=== PATIENT | male | born 1965 | race Caucasian/White ===

== ENCOUNTER → 2019-01-30 | Outpatient (CLI) | payer BC ==
[~2019-01-30] MED LIST: ALBU90I INH; ALBU90OI; ALBU90OI INH; AMIT25; AMOCLA875 PO; ASPI81EC; ATEN25; Aspirin EC81 MG PO; CEPH500 PO; CLOP75; CYCL10 PO; Chantix0.5 MG; ERYT.5TO OS; ERYT.5TO OU; GENT.3OPSA OU; HYDACE10B PO; HYDACE5 PO; IBUP400 PO; IBUP600 PO; IBUP800; LISI10; LISI10 PO; Lipitor20 MG PO; NAPR500 PO; NAPR550 PO; OXYACE5T PO; PENVK500 PO; PROP40; RXCLIN PO; RXOXYACE PO; RXSULTRIDS PO; RXTRAM50 PO; SIMV40; SIMV40 PO; SULTRIDS PO; TRAM50 PO
[2019-01-30 14:44] LABS: BASOPHILS ABSOLUTE AUTO 0.04 K/mm3 (0.00-0.23); BASOPHILS PERCENT AUTO 1 % (0-2); EOSINOPHILS ABSOLUTE AUTO 0.11 K/mm3 (0.00-0.68); EOSINOPHILS PERCENT AUTO 2 % (0-6); Hematocrit 43.4 % (37.0-53.0); Hemoglobin 15.2 g/dL (13.5-17.5); IMMATURE GRAN ABSOLUTE AUTO 0.02 K/mm3 (0.00-0.10); IMMATURE GRAN PERCENT AUTO 0 % (0-1); LYMPHOCYTES ABSOLUTE AUTO 1.57 K/mm3 (0.84-5.20); LYMPHOCYTES PERCENT AUTO 23 % (21-46); MONOCYTES ABSOLUTE AUTO 0.45 K/mm3 (0.16-1.47); MONOCYTES PERCENT AUTO 7 % (4-13); Mean Corpuscular HGB 31.6 pg (26.0-34.0); Mean Corpuscular Volume 90 fL (80-100); Mean Platelet Volume 9.9 fL (9.1-12.4); NEUTROPHILS ABSOLUTE AUTO 4.56 K/mm3 (1.96-9.15); NEUTROPHILS PERCENT AUTO 68 % (41-73); Platelet Count 186 K/mm3 (150-400); RDW Coefficient Variation 11.9 % (11.7-14.2); RDW Standard Deviation 39.2 fL (35.1-46.3); Red Blood Cell Count 4.81 M/mm3 (4.30-5.90); White Blood Cell Count 6.75 K/mm3 (4.00-11.30)
[2019-01-30 15:01] LABS: Alanine Aminotransfer (ALT/SGP 16 U/L (12-78); Albumin, Blood 3.7 g/dL (3.4-5.0); Albumin/Globulin Ratio 0.9 (0.8-1.8); Alk Phos 84 U/L (40-126); Anion Gap 9 mmol/L (6-16); Aspartate Aminotrans (AST/SGOT 16 U/L (12-37); Bilirubin, Total 0.5 mg/dL (0.1-1.0); Blood Urea Nitrogen 11 mg/dL (8-24); Bun/Creatinine Ratio 13.1 (12.0-20.0); CHOL/HDL RATIO 4.1; CO2, Blood 28 mmol/L (21-32); Calcium, Blood 9.2 mg/dL (8.5-10.1); Chloride, Blood 101 mmol/L (98-108); Cholesterol 182 mg/dL (50-200); Creatinine, Blood 0.84 mg/dL (0.60-1.20); Globulin, Blood 3.9 g/dL (2.2-4.0); Glomerular Filtration Rate >60 (60-); Glucose, Blood 80 mg/dL (70-99); HDL Cholesterol 44 mg/dL (>39); LDL/HDL RATIO 2.8; Low Density Lipoprotein Chol 121 mg/dL (<110); Potassium, Blood 4.1 mmol/L (3.5-5.5); Sodium, Blood 138 mmol/L (136-145); Thyroid Stimulating Hormone 1.308 uIU/mL (0.360-4.800); Total Protein, Blood 7.6 g/dL (6.4-8.2); Triglycerides 83 mg/dL (30-160); Very Low Density Lipoprot Chol 16 mg/dL (6-32)
[2019-01-30 16:02] LABS: PSA, Free 0.101 ng/mL
== END | disposition home or self-care (01) ==
LOC: LAB EV 14:38 → LAB SHORT 14:38
PROVIDERS: Physician Assistant
DX: K62.5 Hemorrhage of anus and rectum (principal); I25.10 Atherosclerotic heart disease of native coronary artery without angina pectoris; N40.0 Benign prostatic hyperplasia without lower urinary tract symptoms; R53.83 Other fatigue
CPT/HCPCS: 80053; 80061; 83690; 84153; 84154; 84443; 85025

== ENCOUNTER 2019-02-24 16:31 | Emergency (ER) | payer BC ==
[~2019-02-24] VITALS: Ht 170.2 cm; Wt 68.0 kg
[2019-02-24 17:33] LABS: BASOPHILS ABSOLUTE AUTO 0.05 K/mm3 (0.00-0.23); BASOPHILS PERCENT AUTO 1 % (0-2); EOSINOPHILS ABSOLUTE AUTO 0.07 K/mm3 (0.00-0.68); EOSINOPHILS PERCENT AUTO 1 % (0-6); Hematocrit 41.2 % (37.0-53.0); IMMATURE GRAN ABSOLUTE AUTO 0.03 K/mm3 (0.00-0.10); IMMATURE GRAN PERCENT AUTO 0 % (0-1); LYMPHOCYTES ABSOLUTE AUTO 1.29 K/mm3 (0.84-5.20); LYMPHOCYTES PERCENT AUTO 12 % (21-46); MONOCYTES ABSOLUTE AUTO 0.78 K/mm3 (0.16-1.47); MONOCYTES PERCENT AUTO 7 % (4-13); Mean Corpuscular HGB 31.1 pg (26.0-34.0); Mean Corpuscular Volume 92 fL (80-100); Mean Platelet Volume 9.2 fL (9.1-12.4); NEUTROPHILS ABSOLUTE AUTO 8.66 K/mm3 (1.96-9.15); NEUTROPHILS PERCENT AUTO 80 % (41-73); Platelet Count 205 K/mm3 (150-400); RDW Coefficient Variation 11.9 % (11.7-14.2); RDW Standard Deviation 40.1 fL (35.1-46.3); White Blood Cell Count 10.88 K/mm3 (4.00-11.30)
[2019-02-24 17:52] LABS: Alanine Aminotransfer (ALT/SGP 14 U/L (12-78); Albumin, Blood 3.4 g/dL (3.4-5.0); Alk Phos 73 U/L (50-136); Anion Gap 6 mmol/L (6-16); Aspartate Aminotrans (AST/SGOT 13 U/L (12-37); Bilirubin, Total 0.9 mg/dL (0.1-1.0); Blood Urea Nitrogen 13 mg/dL (8-24); CO2, Blood 28 mmol/L (21-32); Calcium, Blood 8.4 mg/dL (8.5-10.1); Chloride, Blood 103 mmol/L (98-108); Creatinine, Blood 0.87 mg/dL (0.60-1.20); Globulin, Blood 3.3 g/dL (2.2-4.0); Glomerular Filtration Rate >60 (60-); Glucose, Blood 85 mg/dL (70-99); Potassium, Blood 3.9 mmol/L (3.5-5.5); Sodium, Blood 137 mmol/L (136-145); Total Protein, Blood 6.7 g/dL (6.4-8.2)
[2019-02-24] MEDS ORDERED: HYDR1TAB94 PO (19:10)
[2019-02-24] MEDS ORDERED: Augmentin 875-1 EACH PO (19:10)
[2019-02-24] MEDS ORDERED: Zofran8 MG PO (19:10)
[2019-05-15] MEDS ORDERED: CYCL10 PO (15:04)
[2019-05-15] MEDS ORDERED: CLOP75 PO (15:04)
== END 2019-02-24 20:34 | disposition home or self-care (01) ==
LOC: ER 16:31
PROVIDERS: Emergency Medicine
DX: K57.32 Diverticulitis of large intestine without perforation or abscess without bleeding (principal); Z79.82 Long term (current) use of aspirin; Z79.899 Other long term (current) drug therapy; F17.200 Nicotine dependence, unspecified, uncomplicated
CPT/HCPCS: 36415; 74177; 80053; 85025; 93005; 93010; 96365-59; 96375; 99284-25; J0295; J1170; J2405; J2543; J7120; Q9967

== ENCOUNTER 2019-03-22 08:52 | Day surgery (SDC) | payer BC ==
[~2019-03-22] VITALS: Wt 64.8 kg
[~2019-03-22 08:52] MED LIST changes: +Augmentin 875-1 EACH PO; +HYDR1TAB94 PO; +Zofran8 MG PO
--- NOTE | 2019-03-22 09:11 | NUR ---
Ambulatory in Day SurgeryPatient states colon prep results clear. History, Chart, Medications and Allergies reviewed before start of procedure.Lungs INSP WHEEZES RIGHT, CLEARS W/COUGH, Patient confirms NPO status and agrees with scheduled surgery. Pre-Op teaching done. Pt verbalizes understanding.
--- NOTE | 2019-03-22 09:43 | NUR ---
03/22/19 0943 Karan Jameson PATIENT DETERMINED TO BE ASA APPROPRIATE FOR PROPOFOL SEDATION PRIOR TO START OF PROCEDURE BY . 3-LEAD EKG REVIEWED WITH PHYSICIAN PRIOR TO START OF PROCEDURE.PATIENT CONFIRMS NPO STATUS AND AGREES WITH SCHEDULED PROCEDURE.History, Chart, Medications and Allergies reviewed before start of procedure.MONITOR INTACT WITH CONTINUOUS PULSE OXIMETRY AND INTERMITTENT BP.O2 VIA N/C INTACT THROUGHOUT SEDATION/PROCEDURE.
--- NOTE | 2019-03-22 11:05 | NUR ---
Patient up to Ambulate independently. Gait steady. Discharge instructions reviewed with patient. Patient verbalizes understanding. Copy given to patient to take home. Patient States Post-Procedure ride home has been arranged. Discharged via wheelchair to private car for ride home.
[2019-05-15] MEDS ORDERED: CYCL10 PO (15:04)
[2019-05-15] MEDS ORDERED: CLOP75 PO (15:04)
== END 2019-03-22 22:57 | disposition home or self-care (01) ==
LOC: ORSCMMR 08:52 → ORD 09:45 → ORSCMMR 09:45
PROVIDERS: Internal Medicine Gastroenterology
PROC: 0DBM8ZX Excision of Descending Colon, Via Natural or Artificial Opening Endoscopic, Diagnostic (ICD-10-PCS; principal; 2019-03-22 09:45)
PROC: 0DBH8ZX Excision of Cecum, Via Natural or Artificial Opening Endoscopic, Diagnostic (ICD-10-PCS; principal; 2019-03-22 09:45)
PROC: 0DBN8ZX Excision of Sigmoid Colon, Via Natural or Artificial Opening Endoscopic, Diagnostic (ICD-10-PCS; principal; 2019-03-22 09:45)
PROC: 0DBL8ZX Excision of Transverse Colon, Via Natural or Artificial Opening Endoscopic, Diagnostic (ICD-10-PCS; principal; 2019-03-22 09:45)
DX: Z12.11 Encounter for screening for malignant neoplasm of colon (principal); Z86.010 Personal history of colon polyps; D12.3 Benign neoplasm of transverse colon; D12.0 Benign neoplasm of cecum; D12.5 Benign neoplasm of sigmoid colon; K63.5 Polyp of colon; K57.30 Diverticulosis of large intestine without perforation or abscess without bleeding; K64.8 Other hemorrhoids; I25.10 Atherosclerotic heart disease of native coronary artery without angina pectoris; J44.9 Chronic obstructive pulmonary disease, unspecified; I73.9 Peripheral vascular disease, unspecified; F17.210 Nicotine dependence, cigarettes, uncomplicated; Z79.899 Other long term (current) drug therapy; Z79.82 Long term (current) use of aspirin
CPT/HCPCS: 87070; 87081; 88305; J2704; J7120

== ENCOUNTER 2019-04-15 18:19 | Emergency (ER) | payer BC ==
[~2019-04-15] VITALS: Ht 170.2 cm; Wt 68.5 kg
[2019-05-15] MEDS ORDERED: CLOP75 PO (15:04)
[2019-05-15] MEDS ORDERED: CYCL10 PO (15:04)
== END 2019-04-15 21:14 | disposition home or self-care (01) ==
LOC: ER 18:19
DX: I73.9 Peripheral vascular disease, unspecified (principal); Z79.82 Long term (current) use of aspirin; Z79.899 Other long term (current) drug therapy; F17.200 Nicotine dependence, unspecified, uncomplicated
CPT/HCPCS: 93971; 99283-25; A9270

== ENCOUNTER 2019-05-16 07:42 | Day surgery (SDC) | payer BC ==
[~2019-05-16] VITALS: Ht 165.1 cm; Wt 71.0 kg
[~2019-05-16 07:42] MED LIST changes: +CLOP75 PO
--- NOTE | 2019-05-16 14:57 | NUR ---
PT DRESSED, IV DC'D INTACT, PT WALKING AROUND SLOWELY, STATES THIGHS BILAT SORE. R/L GROIN SITES APPEAR STABLE, R DP 1, R PT 1, R GREAT TOE CAP REFILL <3SEC. NO REFILL THIS AM BEFORE PROCEDURE. PT DC'D WITH FAMILY DRIVING PT HOME. PT CHOOSES TO WALK OUT W FAMILY.
== END 2019-05-16 15:00 | disposition home or self-care (01) ==
LOC: MHTC 07:42
DX: I74.5 Embolism and thrombosis of iliac artery (principal); I70.201 Unspecified atherosclerosis of native arteries of extremities, right leg; N52.9 Male erectile dysfunction, unspecified; I25.10 Atherosclerotic heart disease of native coronary artery without angina pectoris; E78.5 Hyperlipidemia, unspecified; Z87.891 Personal history of nicotine dependence; Z79.899 Other long term (current) drug therapy; Z79.82 Long term (current) use of aspirin; Z79.01 Long term (current) use of anticoagulants
CPT/HCPCS: 37220; 37221; 37222; 75625; 75710; 75716; 75774; 76937; 99152; 99153; C1725; C1760; C1769; C1876; C1887; C1894; J1644; J2250; J3010; J7030; Q9967

== ENCOUNTER → 2021-03-30 | Outpatient (CLI) | payer BC ==
[2021-03-30 16:14] LABS: BASOPHILS ABSOLUTE AUTO 0.02 K/mm3 (0.00-0.23); BASOPHILS PERCENT AUTO 0 % (0-2); EOSINOPHILS ABSOLUTE AUTO 0.14 K/mm3 (0.00-0.68); EOSINOPHILS PERCENT AUTO 3 % (0-6); Hematocrit 41.2 % (37.0-53.0); Hemoglobin 14.6 g/dL (13.5-17.5); IMMATURE GRAN ABSOLUTE AUTO 0.01 K/mm3 (0.00-0.10); IMMATURE GRAN PERCENT AUTO 0 % (0-1); LYMPHOCYTES ABSOLUTE AUTO 0.68 K/mm3 (0.84-5.20); LYMPHOCYTES PERCENT AUTO 15 % (21-46); MONOCYTES ABSOLUTE AUTO 0.38 K/mm3 (0.16-1.47); MONOCYTES PERCENT AUTO 8 % (4-13); Mean Corpuscular HGB 31.1 pg (26.0-34.0); Mean Corpuscular HGB Conc 35.4 g/dL (31.5-36.5); Mean Corpuscular Volume 88 fL (80-100); NEUTROPHILS ABSOLUTE AUTO 3.33 K/mm3 (1.96-9.15); NEUTROPHILS PERCENT AUTO 73 % (41-73); Platelet Count 155 K/mm3 (150-400); RDW Coefficient Variation 12.1 % (11.7-14.2); RDW Standard Deviation 38.9 fL (35.1-46.3); Red Blood Cell Count 4.69 M/mm3 (4.30-5.90); White Blood Cell Count 4.56 K/mm3 (4.00-11.30)
[2021-03-30 16:27] LABS: Alanine Aminotransfer (ALT/SGP 28 U/L (12-78); Albumin, Blood 3.3 g/dL (3.4-5.0); Alk Phos 79 U/L (40-126); Anion Gap 8 mmol/L (6-16); Aspartate Aminotrans (AST/SGOT 19 U/L (12-37); Bilirubin, Total 0.3 mg/dL (0.1-1.0); Blood Urea Nitrogen 15 mg/dL (8-24); Bun/Creatinine Ratio 18.1 (12.0-20.0); CO2, Blood 29 mmol/L (21-32); Calcium, Blood 8.6 mg/dL (8.5-10.1); Chloride, Blood 102 mmol/L (98-108); Creatinine, Blood 0.83 mg/dL (0.60-1.20); Globulin, Blood 3.4 g/dL (2.2-4.0); Glomerular Filtration Rate >60 (60-); Glucose, Blood 102 mg/dL (70-99); Potassium, Blood 3.7 mmol/L (3.5-5.5); Sodium, Blood 139 mmol/L (136-145); Total Protein, Blood 6.7 g/dL (6.4-8.2)
== END | disposition home or self-care (01) ==
LOC: LAB SHORT 16:11 → LAB 16:11
PROVIDERS: Physician Assistant Medical
DX: R10.32 Left lower quadrant pain (principal)
CPT/HCPCS: 80053; 85025

== ENCOUNTER 2021-12-08 06:34 | Day surgery (SDC) | payer BC ==
[~2021-12-08] VITALS: Ht 170.2 cm; Wt 68.0 kg
--- NOTE | 2021-12-08 09:38 | NUR ---
PT TO RECOVERY ROOM VIA BED. PT REPORT FROM STORM DE [facility]ZMAN. PT HAS ANGIOSEAL IN PLACE. BLEEDING CONTROLLED. DPs PALPATED BILAT.
[2021-12-08] MEDS ORDERED: CLOP75 PO (09:42)
--- NOTE | 2021-12-08 12:18 | NUR ---
PT GIVEN DC INSTRUCTIONS AND VERBALIZED UNDERSTANDING. IV OUT AND CATH INTACT. DRESSING OVER L GROIN SITE STILL IN PLACE. NO BLEEDING NOTED. SITE SOFT AND SLIGHTLY TENDER. PT TAKEN TO PARKING LOT VIA WC W/ SO. PT TO BE TAKEN HOME BY SON.
== END 2021-12-08 12:15 | disposition home or self-care (01) ==
LOC: MHTC 06:34
DX: I70.211 Atherosclerosis of native arteries of extremities with intermittent claudication, right leg (principal); I25.10 Atherosclerotic heart disease of native coronary artery without angina pectoris; J44.9 Chronic obstructive pulmonary disease, unspecified; F17.200 Nicotine dependence, unspecified, uncomplicated; Z88.8 Allergy status to other drugs, medicaments and biological substances; E78.5 Hyperlipidemia, unspecified
CPT/HCPCS: 76937; 99152; 99153; C1725; C1760; C1769; C1887; C1894; J1644; J2250; J3010; J7030; J7050; Q9967

== ENCOUNTER 2023-03-23 08:24 | Day surgery (SDC) | payer BC ==
[~2023-03-23] VITALS: Ht 170.2 cm; Wt 62.3 kg
[2023-03-23] MEDS ORDERED: PANT20 PO (08:47)
[2023-03-23] MEDS ORDERED: ANORO ELLIPTA1 EACH INH (08:47)
[2023-03-23 11:33] VITALS: BP 128/86
== END 2023-03-23 11:04 | disposition home or self-care (01) ==
LOC: ORSCSDS 08:24
PROVIDERS: Internal Medicine Gastroenterology
PROC: 0DBK8ZX Excision of Ascending Colon, Via Natural or Artificial Opening Endoscopic, Diagnostic (ICD-10-PCS; principal; 2023-03-23 09:45)
PROC: 0DBN8ZX Excision of Sigmoid Colon, Via Natural or Artificial Opening Endoscopic, Diagnostic (ICD-10-PCS; principal; 2023-03-23 09:45)
PROC: 0DBM8ZX Excision of Descending Colon, Via Natural or Artificial Opening Endoscopic, Diagnostic (ICD-10-PCS; principal; 2023-03-23 09:45)
PROC: 0DB78ZX Excision of Stomach, Pylorus, Via Natural or Artificial Opening Endoscopic, Diagnostic (ICD-10-PCS; principal; 2023-03-23 09:45)
DX: K21.9 Gastro-esophageal reflux disease without esophagitis (principal); Z12.11 Encounter for screening for malignant neoplasm of colon; Z86.010 Personal history of colon polyps; D12.2 Benign neoplasm of ascending colon; D12.4 Benign neoplasm of descending colon; D12.5 Benign neoplasm of sigmoid colon; K29.70 Gastritis, unspecified, without bleeding; K22.10 Ulcer of esophagus without bleeding; K57.30 Diverticulosis of large intestine without perforation or abscess without bleeding; K64.8 Other hemorrhoids; K64.4 Residual hemorrhoidal skin tags; I10 Essential (primary) hypertension; I25.10 Atherosclerotic heart disease of native coronary artery without angina pectoris; I25.2 Old myocardial infarction; J44.9 Chronic obstructive pulmonary disease, unspecified; F17.210 Nicotine dependence, cigarettes, uncomplicated; Z79.899 Other long term (current) drug therapy; G47.33 Obstructive sleep apnea (adult) (pediatric)
CPT/HCPCS: 88305; 88342; J2001; J2704; J7120

== ENCOUNTER 2025-04-16 11:40 | Day surgery (SDC) | payer BC ==
[~2025-04-16] VITALS: Ht 170.2 cm; Wt 62.0 kg
[~2025-04-16 11:40] MED LIST changes: +ANORO ELLIPTA1 EACH INH; +Balanced Salt Epinephrine Irrigation Solution 500 mL IR SCH; +Moxifloxacin HCL 0.5 MG/0.1 ML 0.4MLSYR LEFTEYE SCH; +Ondansetron 4 MG SoluTab MM PRN; +PANT20 PO; +PHENYLEPHRINE\\TROPICAMIDE\\TETRACAINE OPHTHALMIC DILATING SOLN LEFTEYE PRN; +Povidone-Iodine 450 DROP/30 ML Solution LEFTEYE SCH; +Povidone-Iodine 450 DROP/30 ML Solution ONE; +Tetracaine HCl/Pf 0.5% Opth Soln 4 ml ONE
[2025-04-16] MEDS ORDERED: VALA500 PO (12:01)
[2025-04-16] MEDS ORDERED: TRELEGY ELLIPT1 EACH IH (12:01)
[2025-04-16] MEDS ORDERED: AMLODIPINE BESY10 MG PO (12:02)
[2025-04-16] MEDS ORDERED: ALBU8HFA2 INH (12:04)
--- NOTE | 2025-04-16 12:16 | NUR ---
04/16/25 1216 Adriana Sigala PT ANXIETY LEVEL IN PRE-OP IS 3/10 PRIOR TO 10MG OF VALIUM.
--- NOTE | 2025-04-16 12:26 | NUR ---
04/16/25 1226 Nedra Nixon 1221 BP:125/71 HR:67 O2%:95 RESP:16
[2025-04-16 12:40] VITALS: BP 114/67
--- NOTE | 2025-04-16 12:43 | NUR ---
04/16/25 1243 Janice Alexis INSTRUCTED TO PULL CAR UP TO PT CHIEF OF [facility] PATROL AREA
== END 2025-04-16 12:59 | disposition home or self-care (01) ==
LOC: ORSCSDS 11:40
PROVIDERS: Student in an Organized Health Care Education/Training Program
PROC: 08RK3JZ Replacement of Left Lens with Synthetic Substitute, Percutaneous Approach (ICD-10-PCS; principal; 2025-04-16 13:00)
DX: H25.813 Combined forms of age-related cataract, bilateral (principal); I25.10 Atherosclerotic heart disease of native coronary artery without angina pectoris; J44.9 Chronic obstructive pulmonary disease, unspecified; E78.00 Pure hypercholesterolemia, unspecified; E78.5 Hyperlipidemia, unspecified; I10 Essential (primary) hypertension; Z79.82 Long term (current) use of aspirin; Z79.899 Other long term (current) drug therapy; Z87.891 Personal history of nicotine dependence
CPT/HCPCS: A9270; V2632